=== PATIENT | female | born 1975 | race Caucasian/White ===

== ENCOUNTER 2019-01-17 01:31 | Emergency (ER) | payer MEDICARE, MEDICAID ==
--- NOTE | 2019-01-17 02:34 | ED Physician Chart ---
ED Chief Complaint/HPI - Patient Information Date Seen:: 01/17/19 Time Seen:: 02:20 Chief Complaint:: Left groin redness with pain for 5 days. History of Present Illness:: Pt came in by private auto because of painful erythematous skin area noticed in proximal left thigh for 5 days. No fever. Taking po well without N/V/D. Allergies:: Allergies Allergy/AdvReac Type Severity Reaction Status Date / Time Penicillins Allergy Verified 01/17/19 01:47 Vitals:: Vital Signs - 8 hr 01/17/19 01:40 Temp 98.1 F HR 81 RR 18 BP 127/77 O2 Sat % 97 Historian:: Patient Family MD/PCP:: Dr. Jane LMP:: 05/2016 Review:: Nurse's Note Reviewed ED Review of Systems - Review of Systems General/Constitutional: No fever, Chills, No weight loss, No weakness, No edema , Loss of appetite Skin: No bruising, Other (redness in left groin/thigh area, see HPI.) Head: No headache, No light-headedness Eyes: No loss of vision, No pain, No diplopia ENT: No earache, No nasal drainage, No sore throat Neck: No neck pain, No swelling, No stiffness, No mass noted Cardio Vascular: No chest pain, No palpitations Pulmonary: No SOB, No cough, No wheezing GI: No nausea, No vomiting, No pain G/U: No dysuria, No frequency, No hematuria Molder Operator: No vaginal discharge, No abnormal vaginal bleed Musculoskeletal: No bone or joint pain Psychiatric: No prior psych history Hematopoietic: No bruising Allergic/Immuno: No urticaria, No angioedema Neurological: No syncope, No focal symptoms, No weakness, No paresthesia, No headache, No dizziness ED Past Medical History - Past Medical History Past Medical History: Asthma/COPD, Thyroid disorder, Other (h/o rectal CA s/p chemotherapy until 2 months ago. ) Family History: HTN Social History: Non Smoker, No Alcohol, No Drug Use, , Other (lives with her children.) Employment:: unemployed. Surgical History: other (colostomy in 2016. Bilateral inguinal hernia repair at age 2 months.) Psychiatricy History: None Medication: Reviewed Family Medical History - Family Member Mother History Unknown: Yes ED Physical Exam - Physical Examination General/Constitutional: Awake, Well-developed, well-nourished (female), Alert, No distress, Non-toxic appearing Other Gen/Cons comments:: Breathes comfortably, speaks clearly, and interacts appropriately. Head: Atraumatic Eyes: Lids, conjuctiva normal, PERRL, EOMI Other Skin comments:: There is an erythematous area noticed in anterior proximal thigh at inguinal region that extends distally about 7 cm in the medial aspect and 3 cm in the lateral aspect, associated with warmth and inguinal lymphadenopathy. No open wound or crepitus. L hip has good ROM. No detectable motor/sensory/vascular deficit. Good distal pulse. The exam has been performed in the presence of female nurse Stella. ENMT: External ears, nose nl, Nasal exam nl, Oropharynx nl Neck: Nontender, Full ROM w/o pain, No nuchal rigidity, No mass Respiratory: Nl effort/Exclusion, Clear to Auscultation, No Wheeze/Rhonchi/Rales Cardio Vascular: RRR, No murmur, gallop, rubs GI: No tenderness/rebounding/guarding, No organomegaly, Normal BS's, Nondistended, No mass/bruits Other GI comments:: Colostomy with colostomy bag noticed at [facility]. : No CVA tenderness Other Extremities comments:: see Skin exam above also. Neuro/Psych: Alert/oriented (oriented x 3.), Judgement/insight normal, Mood normal, No focal deficits ED Labs/Radiology/EKG Results - Lab Results Results: Laboratory Results - last 24 hr 01/17/19 01/17/19 01/17/19 03:15 03:15 03:15 WBC 4.9 RBC 4.04 Hgb 12.0 Hct 35.5 L MCV 87.9 MCH 29.7 MCHC Differential 33.8 RDW 12.8 Plt Count 164 MPV 7.3 Add Manual Diff YES Band Neutrophils % 2 Neutrophils (Manual) 41 Lymphocytes 30 Eosinophils 27 H Platelet Estimate ADEQUATE PT 9.7 INR 0.93 PTT (Actin FS) 27.8 Sodium 143 Potassium 3.5 Chloride 106 Carbon Dioxide 28.2 Anion Gap 12.3 BUN 14 Creatinine 0.8 Est GFR ( Amer) > 60.0 Est GFR (Non-Af Amer) > 60.0 BUN/Creatinine Ratio 17.5 Glucose 102 Whole Bld Lactic Acid Calcium 9.1 Total Bilirubin 0.3 AST 32 ALT 23 Alkaline Phosphatase 101 Total Protein 6.3 Albumin 3.6 L Globulin 2.7 Albumin/Globulin Ratio 1.3 Urine Test 01/17/19 01/17/19 03:15 03:20 WBC RBC Hgb Hct MCV MCH MCHC Differential RDW Plt Count MPV Add Manual Diff Band Neutrophils % Neutrophils (Manual) Lymphocytes Eosinophils Platelet Estimate PT INR PTT (Actin FS) Sodium Potassium Chloride Carbon Dioxide Anion Gap BUN Creatinine Est GFR ( Amer) Est GFR (Non-Af Amer) BUN/Creatinine Ratio Glucose Whole Bld Lactic Acid 0.95 Calcium Total Bilirubin AST ALT Alkaline Phosphatase Total Protein Albumin Globulin Albumin/Globulin Ratio Urine Test NEGATIVE Pending lab results: blood cultures ED Septic Shock - . Is Septic Shock (SBP<90, OR Lactate>4 mmol\L) present?: No - <6hrs of presentation: Vital Signs: Vital Signs - 8 hr 01/17/19 01:40 Temp 98.1 F HR 81 RR 18 BP 127/77 O2 Sat % 97 ED Reassessment (Disposition) - Reassessment Reassessment:: 0430 Pt has been repeatedly evaluated. Pt remains stable. Pain medication was offered earlier, but pt declined and stated that her pain is tolerable. Available lab findings have been reviewed with patient. Management plan has been discussed. 0640 Pt developed head itchiness after infusion of vancomycin. Benadryl 50 mg IV thus was given. Pt now feels much better. Repeated attempts to reach admitting physician Dr. Llamas. Case has been signed off to Dr. Pimentel for continued care. Reassessment Condition:: Improved - Diagnosis Diagnosis:: Left thigh/groin cellulitis. H/O rectal CA, s/p colostomy with last chemotherapy about 2 months ago.
[2019-01-17 03:47] LABS: HEMATOCRIT 35.5 % (41.0-60); MEAN CELL VOLUME 87.9 fl (81-100); MEAN CORPUSCULAR HEMOGLOBIN 29.7 pg (27.0-31.0); MEAN CORPUSCULAR HGB CONC 33.8 pg (28.0-36.0); PLATELET COUNT 164 Th/cmm (150-400); RED BLOOD COUNT 4.04 Mil/cmm (3.80-5.10); RED CELL DISTRIBUTION WIDTH 12.8 % (11.5-20.0); WHITE BLOOD COUNT 4.9 Th/cmm (4.8-10.8)
[2019-01-17 03:48] LABS: INR 0.93 (0.5-1.4)
[2019-01-17 03:53] LABS: ALB/GLOB RATIO 1.3 (1.0-1.8); ALBUMIN 3.6 gm/dL (3.7-5.3); ALKALINE PHOSPHATASE 101 U/L (34-104); ANION GAP 12.3 (7.0-16.0); BILIRUBIN,TOTAL 0.3 mg/dL (0.3-1.0); BUN - UREA NITROGEN 14 mg/dL (7-25); CALCIUM SERUM 9.1 mg/dL (8.6-10.3); CARBON DIOXIDE 28.2 mEq/L (21.0-31.0); CHLORIDE 106 mEq/L (98-107); CREATININE - SERUM 0.8 mg/dL (0.6-1.2); GFR AFRICAN-AMERICAN > 60.0 ml/min (>90); GFR NON AFRICAN-AMERICAN > 60.0 ml/min; GLUCOSE 102 mg/dL (70-105); POTASSIUM SERUM 3.5 mEq/L (3.5-5.1); SGOT 32 U/L (13-39); SGPT/ALT 23 U/L (7-52); SODIUM SERUM 143 mEq/L (136-145); TOTAL PROTEIN,SERUM 6.3 gm/dL (6.0-8.3)
[2019-01-17 04:30] LABS: BAND NEUTROPHILE 2 % (0-10); EOSINOPHIL 27 % (0-5); LYMPHOCYTE 30 % (20-50); NEUTROPHILS 41 % (40-80)
[2019-01-17 04:31] LABS: PLATELET ESTIMATE ADEQUATE (NORMAL)
--- NOTE | 2019-01-17 10:28 | Diagnostic Imaging Report ---
Ultrasound soft tissues left groin region. Sonographic sector images obtained over the soft tissues left groin. The exam demonstrates somewhat ill-defined heterogeneous changes within the soft tissues of the left groin. No discrete loculated fluid collections or discrete abnormal masses are seen. IMPRESSION: 1. Nonspecific ill-defined heterogeneous changes within the soft tissues about the left groin. No discrete loculated fluid collections or discrete abnormal masses identified.
--- NOTE | 2019-01-17 11:50 | Diagnostic Imaging Report ---
CT scan of the pelvis without intravenous contrast HISTORY: Pain Total DLP equals 313 CTDI equals 10.0 Axial sections were obtained from the iliac crest down to the pubic symphysis. Heterogeneous density is partially visualized over the left lower abdomen/upper pelvis. A small to moderate amount of free fluid is noted in the cul-de-sac region of the pelvis. This may be on a physiologic basis. Inflammatory change cannot be excluded. Clinical correlation is needed. If necessary, pelvic sonography may be helpful. No discrete abnormal soft tissue masses. No bowel dilatation. No focal or acute bony abnormalities. IMPRESSION: 1. Small to moderate amount of free fluid within the cul-de-sac region of the pelvis. This may be on a physiologic basis. Inflammatory change cannot be excluded. Clinical correlation and correlation with menstrual status is needed. If necessary, sonography may be helpful. 2. Heterogeneous density on the skin surface over the left lower anterior abdomen/pelvis.
== END 2019-01-17 12:52 | disposition home or self-care (01) ==
LOC: ER 01:31
DX: R10.32 Left lower quadrant pain (principal); M79.652 Pain in left thigh; E07.9 Disorder of thyroid, unspecified; J45.909 Unspecified asthma, uncomplicated; Z88.0 Allergy status to penicillin
CPT/HCPCS: 99284; 96365; 96375; 76881; 72192; 36415; 83605; 85007; 85025; 85610; 81025; 80053; 87081; 87040 ×2; J3370; J1200